=== PATIENT | female | born 1950 | race Caucasian/White ===

== ENCOUNTER 2018-02-10 12:01 | Outpatient (RCR) | payer MEDICARE, SELFPAY | END 2018-02-10 12:19 | LOC: CAR 12:01 | DX: I21.3 ST elevation (STEMI) myocardial infarction of unspecified site (principal) | CPT/HCPCS: 93798 ==

== ENCOUNTER → 2022-07-31 | Outpatient (CLI) | payer MEDICARE, SELFPAY ==
--- NOTE | 2022-07-31 12:43 | DI.RAD.S_ITS ---
Bone Density Report Name: MARICEL SAPP Age: 72 Sex: Female Ethnicity: White Date of : 1950 Indication: screening for osteoporosis; prior fracture; Referring Provider: ARRON HAYSE Study: Bone densitometry was performed. Exam Date: July 31, 2022 Accession number: [id number] Bone Density: Region BMD T-score Z-score Classification AP Spine(L1-L4) 0.910 -1.2 1.1 Osteopenia Femoral Neck (Left) 0.675 -1.6 0.4 Osteopenia Total Hip (Left) 0.781 -1.3 0.4 Osteopenia Femoral Neck (Right) 0.682 -1.5 0.5 Osteopenia Total Hip (Right) 0.772 -1.4 0.3 Osteopenia Total Hip Mean 0.776 -1.4 0.4 Osteopenia World Health Organization criteria for BMD impression classify patients as: Normal (T-score at or above -1.0), Osteopenia (T-score between -1.0 and -2.5), or Osteoporosis (T-score at or below -2.5). 10-year Fracture Risk: FRAX not reported because: Premenopausal woman Prior hip or vertebral fracture Treated for osteoporosis Impression: The patient's bone mass is within expected range for age, gender and ethnicity. The patient has risk factors, including: previous fracture. Discussion: It is important to ask patients whether they are taking their medications and to encourage continued and appropriate compliance with their osteoporosis therapies to reduce fracture risk. It is also important to review their risk factors and encourage appropriate calcium and vitamin D intakes, exercise, fall prevention and other lifestyle measures. Follow-Up: Consider a repeat BMD and Vertebral Fracture Assessment (VFA) exam in 2 years or sooner if medically necessary, to reassess this patient's status. Reported by: KENDRICK LUNDBERG MD on 07/31/2022 1:01:00 PM.
== END ==
LOC: RAD 12:43
PROVIDERS: PCP Physician Assistant; Referring Provider Physician Assistant; Visit Provider Physician Assistant
DX: Z13.820 Encounter for screening for osteoporosis (principal); S22.050A Wedge compression fracture of T5-T6 vertebra, initial encounter for closed fracture; M85.80 Other specified disorders of bone density and structure, unspecified site; Z78.0 Asymptomatic menopausal state
CPT/HCPCS: 77080

== ENCOUNTER 2023-11-30 21:57 | Emergency (ER) | payer MEDICARE, SELFPAY ==
[2023-11-30 22:04] VITALS: BP 159/77; PULSE 65; RESP 12; TEMP 36.6; O2SAT 97; BMI 25.0
--- NOTE | 2023-11-30 22:07 | DI.RAD.S_ITS ---
PROCEDURE: XR WRIST LT MIN 3V INDICATIONS: GLF/WRIST INJ TECHNIQUE: Four views of the wrist were acquired. COMPARISON: None. FINDINGS: Bones: Decreased mineralization. Impacted, mildly comminuted and minimally displaced fracture of the distal radius with extension to the articular surface. 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 Soft tissues: No suspicious soft tissue calcifications. Prominent dorsal soft tissue swelling over the wrist. No radiodense foreign bodies. IMPRESSION: Impacted, comminuted, intra-articular distal radius fracture. Dictated by: Franny Sevilla M.D. on 11/30/2023 at 23:15 Approved by: Franny Sevilla M.D. on 11/30/2023 at 23:16
--- NOTE | 2023-11-30 22:15 | DI.RAD.S_ITS ---
PROCEDURE: XR FOREARM LT 2V INDICATIONS: pain/fall TECHNIQUE: 2 views of the forearm were acquired. COMPARISON: None. FINDINGS: Bones: Impacted, comminuted distal radius fracture described in wrist films of the same day. The remainder of the forearm is otherwise intact. Soft tissues: No suspicious soft tissue calcifications or masses. IMPRESSION: Impacted and comminuted distal radius fracture. Dictated by: Franny Sevilla M.D. on 11/30/2023 at 23:16 Approved by: Franny Sevilla M.D. on 11/30/2023 at 23:17
--- NOTE | 2023-11-30 22:15 | ED.UPPEXIN ---
HPI - Extremity Injury (Upper) General Chief Complaint: Extremity Injury, Upper Stated Complaint: lt wrist injury s/p fall, on thinners Time Seen by Provider: 11/30/23 22:07 Source: patient Mode of arrival: Family Vehicle History of Present Illness HPI narrative: 73-year-old female presents with left wrist pain and swelling after a ground level fall. Patient states that she tripped over a root and landed on her outstretched hand. Denies hitting her head or other injuries. Has pain and swelling to her left wrist and forearm. She was evaluated by paramedics on [facility], who placed her in a make shift splint, patient subsequently came to the emergency department Related Data Home Medications Medication Instructions Recorded Confirmed cholecalciferol (vitamin D3) 50 50 mcg PO DAILY 05/22/22 06/04/22 mcg (2,000 unit) capsule clopidogrel 75 mg tablet 75 mg PO DAILY 05/22/22 06/04/22 cupric sulfate (bulk) (Copper ea miscellaneous 05/22/22 06/04/22 Sulfate crystals) diphenhydramine HCl 25 mg tablet 25 mg PO DAILY PRN 05/22/22 06/04/22 (Allergy (diphenhydramine)) fexofenadine 180 mg tablet 180 mg PO DAILY 05/22/22 06/04/22 (Allergy Relief (fexofenadine)) magnesium 200 mg tablet 200 mg PO DAILY 05/22/22 06/04/22 rosuvastatin 20 mg tablet 20 mg PO DAILY 05/22/22 06/04/22 zinc sulfate 50 mg zinc (220 mg) 50 mg PO DAILY 05/22/22 06/04/22 capsule calcium citrate 1,000 mg tablet 1,300 mg PO DAILY 06/04/22 06/04/22 Previous Rx's Medication Instructions Recorded calcitonin (salmon) 200 1 spray intranasal (ALT) DAILY 06/04/22 unit/actuation nasal spray sacral fx 3 months #3.7 mL diazepam 10 mg tablet (Valium) 5 mg (1/2 x 10 mg) PO .COMPLEX PRN 06/04/22 1/2 tab prior to MRI #1 tab hydrocodone 5 mg-acetaminophen 325 1 tab PO Q8H PRN pain #12 tabs 12/01/23 mg tablet Allergies Allergy/AdvReac Type Severity Reaction Status Date / Time penicillin V [PENICILLIN V] Allergy Unknown Verified 11/30/23 22:10 Patient History Social History Smoking Status: Never smoker Smoking Status: Never smoker alcohol intake frequency: a few times a month Alcohol type: wine Substance Use Type: does not use Exam Initial Vital Signs Initial Vital Signs: Vital Signs Temperature 97.9 F 11/30/23 22:04 Pulse Rate 65 11/30/23 22:04 Respiratory Rate 12 11/30/23 22:04 Blood Pressure 159/77 H 11/30/23 22:04 Pulse Oximetry 97 11/30/23 22:04 Oxygen Delivery Method Room Air 11/30/23 22:04 Const: Awake, alert, no acute distress, nontoxic appearing MSK: Swelling left wrist, range of motion of wrist limited due to pain, able to wiggle all fingers, radial pulses intact and equal Skin: Warm, Dry, intact, no rashes Neuro: AO x3, CN II-XII grossly intact, moves all extremities Course Orders Ordered: ED Orders 11/30/23 22:07 XR wrist LT min 3V Stat 11/30/23 22:15 XR forearm LT 2V Stat Discontinued Medications Hydrocodone Bitart/Acetaminophen (Hydrocodone/Acet 5/325 Prepack) 1 bottle MISC DIRECTED ONE Stop: 11/30/23 23:40 Last Admin: 11/30/23 23:45 Dose: 1 bottle Documented By: KH Oxycodone HCl (Oxycodone Ir 5 Mg Tablet) 5 mg PO NOW ONE Stop: 11/30/23 22:54 Last Admin: 11/30/23 23:10 Dose: 5 mg Documented By: SB Vital Signs Vital signs: Vital Signs - 8 hr 12/01/23 00:05 Pulse Rate 64 Respiratory Rate 18 Blood Pressure 159/77 H Pulse Oximetry 96 Oxygen Delivery Method Room Air MDM - Extremity Injury (Upper) Imaging Data Extremity x-ray #1: Radiologist's Impression: PROCEDURE: XR WRIST LT MIN 3V INDICATIONS: GLF/WRIST INJ TECHNIQUE: Four views of the wrist were acquired. COMPARISON: None. FINDINGS: Bones: Decreased mineralization. Impacted, mildly comminuted and minimally displaced fracture of the distal radius with extension to the articular surface. 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 Soft tissues: No suspicious soft tissue calcifications. Prominent dorsal soft tissue swelling over the wrist. No radiodense foreign bodies. IMPRESSION: Impacted, comminuted, intra-articular distal radius fracture. Dictated by: Franny Sevilla M.D. on 11/30/2023 at 23:15 Approved by: Franny Sevilla M.D. on 11/30/2023 at 23:16 [facility] Narrative Medical decision making narrative: Ground level fall onto outstretched hand. Deformity to left wrist noted. Neurovascularly intact. X-ray imaging shows impacted, comminuted, intra-articular distal radius fracture. Does not appear to be amenable to manipulation or reduction. Patient informed of diagnosis, placed in sugar-tong splint for support and given referral number to Orthopedic surgery. Pain medication sent to pharmacy of choice and prepack provided since pharmacies are currently closed. Discharge Plan Departure Patient Disposition: Home Clinical Impression: Distal radius fracture Instructions: DI for Distal Radius Fracture Activity Restrictions/Additional Instructions: Your x-ray showed that you have a fracture of your distal radius, which is a bone in your forearm. Follow up with Orthopedic surgery. You may take 1000 mg of Tylenol every 6 hours as needed for pain along with the prescribed medications. Please make sure to take no more than 4000 mg total of Tylenol daily. Elevate your extremity above heart level for comfort. The pain medication prescribed may make you drowsy, so do not take it with alcohol or before driving. This medication causes constipation, I recommend taking a stool softener with this medication. Prescriptions: New hydrocodone-acetaminophen 5-325 mg tablet 1 tab PO Q8H PRN (Reason: pain) Qty: 12 0RF No Action clopidogrel 75 mg tablet 75 mg PO DAILY rosuvastatin 20 mg tablet 20 mg PO DAILY fexofenadine [Allergy Relief (fexofenadine)] 180 mg tablet 180 mg PO DAILY diphenhydramine HCl [Allergy (diphenhydramine)] 25 mg tablet 25 mg PO DAILY PRN cholecalciferol (vitamin D3) 50 mcg (2,000 unit) capsule 50 mcg PO DAILY zinc sulfate 50 mg zinc (220 mg) capsule 50 mg PO DAILY Copper Sulfate Crystals miscellaneous magnesium 200 mg tablet 200 mg PO DAILY calcium citrate 1,000 mg tablet 1,300 mg PO DAILY calcitonin (salmon) 200 unit/actuation spray,non-aerosol 1 spray intranasal (ALT) DAILY 90 Days Qty: 3.7 2RF Rx Instructions: sacral fx diazepam [Valium] 10 mg tablet 5 mg PO .COMPLEX PRN (Reason: 1/2 tab prior to MRI) Qty: 1 0RF Rx Instructions: 5 mg orally PRN; Referrals: Deborah Mondragon MD [Physician] - Azra Louis PA-C [Primary Care Provider] - Stand Alone Forms: Patient Portal/API
[2023-11-30] MEDS: OXYCODONE IR 5 MG TABLET PO (23:10)
[2023-11-30] MEDS: HYDROCODONE/ACET 5/325 PREPACK 1 BOTTLE MISC (23:45)
[2023-12-01 00:05] VITALS: BP 159/77; PULSE 64; RESP 18; O2SAT 96
== END 2023-12-01 00:10 | disposition home or self-care (01) ==
PROVIDERS: Emergency Provider Emergency Medicine; PCP Physician Assistant
DX: S52.502A Unspecified fracture of the lower end of left radius, initial encounter for closed fracture (principal); W01.0XXA Fall on same level from slipping, tripping and stumbling without subsequent striking against object, initial encounter
CPT/HCPCS: 29125; 73090; 73110; 99283; 99284

== ENCOUNTER 2023-12-04 09:29 | Emergency (ER) | payer MEDICARE, SELFPAY ==
[2023-12-04 09:30] VITALS: BP 161/74; PULSE 81; RESP 14; TEMP 36.7; O2SAT 95; BMI 25.0
--- NOTE | 2023-12-04 09:39 | ED_ITS ---
HPI - Extremity Injury (Upper) General Chief Complaint: Extremity Injury, Upper Stated Complaint: wants to have l arm checked Time Seen by Provider: 12/04/23 09:38 History of Present Illness HPI narrative: 73-year-old female with recent closed left distal radius fracture diagnosed and splinted here on Friday, Shaw wrap application, feels that she is having swelling to the hand, we would like to have the splint/wrap checked. No other areas of discomfort. No chest pain or shortness of breath. She has left the splinting device intact, same wrapping as on discharge. Missed appointment with orthopedic surgery for surgery. Related Data Home Medications Medication Instructions Recorded Confirmed cholecalciferol (vitamin D3) 50 50 mcg PO DAILY 05/22/22 06/04/22 mcg (2,000 unit) capsule clopidogrel 75 mg tablet 75 mg PO DAILY 05/22/22 06/04/22 cupric sulfate (bulk) (Copper ea miscellaneous 05/22/22 06/04/22 Sulfate crystals) diphenhydramine HCl 25 mg tablet 25 mg PO DAILY PRN 05/22/22 06/04/22 (Allergy (diphenhydramine)) fexofenadine 180 mg tablet 180 mg PO DAILY 05/22/22 06/04/22 (Allergy Relief (fexofenadine)) magnesium 200 mg tablet 200 mg PO DAILY 05/22/22 06/04/22 rosuvastatin 20 mg tablet 20 mg PO DAILY 05/22/22 06/04/22 zinc sulfate 50 mg zinc (220 mg) 50 mg PO DAILY 05/22/22 06/04/22 capsule calcium citrate 1,000 mg tablet 1,300 mg PO DAILY 06/04/22 06/04/22 Previous Rx's Medication Instructions Recorded calcitonin (salmon) 200 1 spray intranasal (ALT) DAILY 06/04/22 unit/actuation nasal spray sacral fx 3 months #3.7 mL diazepam 10 mg tablet (Valium) 5 mg (1/2 x 10 mg) PO .COMPLEX PRN 06/04/22 1/2 tab prior to MRI #1 tab hydrocodone 5 mg-acetaminophen 325 1 tab PO Q8H PRN pain #12 tabs 12/01/23 mg tablet Allergies Allergy/AdvReac Type Severity Reaction Status Date / Time penicillin V [PENICILLIN V] Allergy Unknown Verified 12/04/23 09:42 Patient History Social History Smoking Status: Never smoker Smoking Status: Never smoker alcohol intake frequency: a few times a month Alcohol type: wine Substance Use Type: does not use Exam Narrative Exam Narrative: GENERAL: Well-developed patient, in mild distress. HEAD: Atraumatic. Normocephalic. EYES: Pupils equal round and reactive. Extraocular motions intact. No scleral icterus. No injection or drainage. ENT: Nose without bleeding, purulent drainage. Throat without erythema, tonsillar hypertrophy or exudate. Airway patent. NECK: Trachea midline. Non tender CARDIOVASCULAR: Regular rate and rhythm without murmurs, gallops, or rubs. RESPIRATORY: Clear to auscultation. Breath sounds equal bilaterally. No wheezes, rales, or rhonchi. GASTROINTESTINAL: Abdomen soft, non-tender, nondistended. EXTREMITIES: No edema or joint tenderness. Left forearm in sugar-tong splint with Coban, fingers with some swelling, but good cap refill. Splint kept in place for now. Shaw wrap removed, symptoms improving. BACK: Nontender without deformity or crepitance. No flank tenderness. NEURO: AOx3. Grossly nonfocal neuro exam SKIN: No rash or erythema of visible areas Initial Vital Signs Initial Vital Signs: Vital Signs Temperature 98.1 F 12/04/23 09:30 Pulse Rate 81 12/04/23 09:30 Respiratory Rate 14 12/04/23 09:30 Blood Pressure 161/74 H 12/04/23 09:30 Pulse Oximetry 95 12/04/23 09:30 Oxygen Delivery Method Room Air 12/04/23 09:30 Course Vital Signs Vital signs: Vital Signs - 8 hr 12/04/23 09:30 Temperature 98.1 F Pulse Rate 81 Respiratory Rate 14 Blood Pressure 161/74 H Pulse Oximetry 95 Oxygen Delivery Method Room Air MDM - Extremity Injury (Upper) MDM Narrative Medical decision making narrative: 73-year-old female status post splinting and Shaw wrap for close left distal radius fracture 4 days ago, does not recall sedation or any particular reduction, but has swelling to the fingers of the affected side. She is worried that the wrap might be too tight. Shaw wrap removed, splint otherwise left intact, symptoms improving. We will observe further. Removed shaw wrap, re- applied shaw wrap more loosely, tolerated well, improved. Follow up with Orthopedic surgery as planned, contact information again given for the office of Dr. Butts from previous visit. Also gave contact info for orthopedic surgery on-call today Dr Rodriguez Discharge Plan Departure Patient Disposition: Home Clinical Impression: Radius fracture, Hand swelling Activity Restrictions/Additional Instructions: New diagnosis of closed left distal radius fracture 4 days ago, no conscious sedation for reduction, splinted, Shaw wrap applied. Some swelling of the left hand and fingers while wearing splint. The Shaw wrap was removed, observation in the splint with less tension, symptoms improved. Rewrapped with less tension. Follow up with Orthopedic surgery as planned Prescriptions: No Action hydrocodone-acetaminophen 5-325 mg tablet 1 tab PO Q8H PRN (Reason: pain) Qty: 12 0RF clopidogrel 75 mg tablet 75 mg PO DAILY rosuvastatin 20 mg tablet 20 mg PO DAILY fexofenadine [Allergy Relief (fexofenadine)] 180 mg tablet 180 mg PO DAILY diphenhydramine HCl [Allergy (diphenhydramine)] 25 mg tablet 25 mg PO DAILY PRN cholecalciferol (vitamin D3) 50 mcg (2,000 unit) capsule 50 mcg PO DAILY zinc sulfate 50 mg zinc (220 mg) capsule 50 mg PO DAILY Copper Sulfate Crystals miscellaneous magnesium 200 mg tablet 200 mg PO DAILY calcium citrate 1,000 mg tablet 1,300 mg PO DAILY calcitonin (salmon) 200 unit/actuation spray,non-aerosol 1 spray intranasal (ALT) DAILY 90 Days Qty: 3.7 2RF Rx Instructions: sacral fx diazepam [Valium] 10 mg tablet 5 mg PO .COMPLEX PRN (Reason: 1/2 tab prior to MRI) Qty: 1 0RF Rx Instructions: 5 mg orally PRN; Referrals: Deborah Mondragon MD [Physician] - Azra Louis PA-C [Primary Care Provider] - Leo Rodriguez MD [Physician] - Stand Alone Forms: Patient Portal/API
--- NOTE | 2023-12-04 10:19 | PC.NURSE ---
Pt with radial head fracture. orthoglass placed 4 days ago. unable to get into ortho and having increased pain and swelling. areli wraps removed. pt arm propped on pillow to help decreased swelling.
--- NOTE | 2023-12-04 10:39 | PC.NURSE ---
Pt arm rewrapped loosely. explained the difference between bruising discoloration from gravity from the fracture vs cyanosis and decreased cap refill. pt verbalized understanding. reports she can still not get in touch with the ortho office. OOB to BR with steady gait.
== END 2023-12-04 11:14 | disposition home or self-care (01) ==
PROVIDERS: Emergency Provider Emergency Medicine; PCP Physician Assistant
DX: S52.502A Unspecified fracture of the lower end of left radius, initial encounter for closed fracture (principal); X58.XXXA Exposure to other specified factors, initial encounter
CPT/HCPCS: 99281; 99282